=== PATIENT | female | born 1985 | race Caucasian/White ===

== ENCOUNTER 2016-09-25 17:12 | Inpatient (IN) | payer SELFPAY ==
[~2016-09-25] VITALS: Ht 170.2 cm; Wt 58.3 kg
[2016-09-25 17:43] LABS: AMPHETAMINE NEGATIVE (500 ng/mL); BARBITURATES NEGATIVE (200 ng/mL); BENZODIAZEPINES NEGATIVE (150 ng/mL); COCAINE NEGATIVE (150 ng/mL); INTERNAL CONTROLS VALID? YES; METHADONE NEGATIVE (200 ng/mL); METHAMPHETAMINE NEGATIVE (500 ng/mL); OPIATES (MORPHINE) NEGATIVE (100 ng/mL); OXYCODONE NEGATIVE (100 ng/mL); PHENCYCLIDINE NEGATIVE (25 ng/mL); PROPOXYPHENE NEGATIVE (300 ng/mL); THC CANNABINOIDS NEGATIVE (50 ng/mL); TRICYCLIC ANTIDEPRESSANTS NEGATIVE (300 ng/mL)
[2016-09-25 17:47] LABS: HEMATOCRIT 45.1 % (36.0-46.0); MCH 31.3 PG (29.0-34.0); MCHC 34.1 G/DL (30.0-36.0); MCV 91.7 FL (83-99); MEAN PLAT.VOLUME 10.3 uM^3 (9.5-12.4); PLATELET COUNT 331 K/uL (156-360); RBC DIS.WIDTH-CV 12.5 % (11.8-14.6); RBC DIS.WIDTH-SD 42.1 % (39-53); RED BLOOD COUNT 4.92 M/uL (3.80-5.20); WHITE BLOOD COUNT 9.4 K/uL (4.1-10.2)
[2016-09-25 17:58] LABS: CHLORIDE 102 mEq/L (99-109); POTASSIUM 4.5 mEq/L (3.7-5.4); SODIUM 140 mEq/L (136-147)
[2016-09-25 18:00] LABS: GLUCOSE 80 mg/dL (70-99)
[2016-09-25 18:01] LABS: ANION GAP 16 MEQ/L (2-14)
[2016-09-25 18:03] LABS: SERUM ETHYL ALCOHOL 228 mg/dL
[2016-09-25 18:04] LABS: GFR ESTIMATE (CALCULATED) > 59 mL/min/; UREA NITROGEN (BUN) 9 mg/dL (9-23)
[2016-09-25] MEDS ORDERED: XANAX0.25 MG PO (20:31)
[2016-09-25] MEDS ORDERED: BIOTIN1000 MICRO PO (20:31)
[2016-09-25] MEDS ORDERED: LEXAPRO10 MG PO (20:31)
[2016-09-25] MEDS ORDERED: WOMEN'S DAILY1 EAC2 PO (20:31)
[2016-09-25] MEDS ORDERED: ALLEGRA ALLERG180 MG PO (20:31)
[2016-09-26 00:44] VITALS: BP 133/91
[2016-09-26 08:08] VITALS: BP 138/80
[2016-09-26 16:06] VITALS: BP 112/72
[2016-09-27 07:42] VITALS: BP 115/88
[2016-09-27 15:24] VITALS: BP 119/81
[2016-09-28 07:57] VITALS: BP 106/73
[2016-09-28] MEDS ORDERED: ESCITALOPRAM OX20 MG PO (10:10)
== END 2016-09-28 11:10 | disposition home or self-care (01) | DRG 897 ==
LOC: EME 17:12 → EDOF 23:22 → 1WEST 23:22
DX: F10.20 Alcohol dependence, uncomplicated (principal); R45.851 Suicidal ideations; F31.9 Bipolar disorder, unspecified; F41.8 Other specified anxiety disorders; F41.9 Anxiety disorder, unspecified
CPT/HCPCS: 80048; 85027; 90839; 99281; 99285; G0480